=== PATIENT | female | born 1995 | race Caucasian/White ===

== ENCOUNTER 2024-04-15 12:26 | Emergency (ER) | payer OTHER ==
[2024-04-15 12:36] VITALS: RESP 18
--- NOTE | 2024-04-15 13:16 | ED ---
Abdominal Pain HPI - General Source: patient, RN notes reviewed, old records reviewed Mode of arrival: ambulatory Limitations: no limitations <Sadi Bhatt - Last Filed: 04/15/24 13:15> - General Source: RN notes reviewed <Yen Jennings - Last Filed: 04/15/24 16:18> - General Stated Complaint: MRI referral Time Seen by Provider: 04/15/24 12:40 - History of Present Illness Initial Comments: QN a female to the ER for evaluation of abdominal pain history of diabetes concern for gastroparesis significant abdominal pain with decreased bowel movements positive nausea no vomiting no fevers no history of surgical treatment for abdominal pain (Sadi Bhatt) Patient is a 28-year-old female with past medical history of diabetes diagnosed at 10 yo who presents to the with complaint of abdominal pain, bloating and intermittent diarrhea and constipation over the past few days. Patient was referred by primary care provider for CT imaging and concern for gastroparesis. Denies hematemesis, hematuria, dark or tarry stools or hematochezia. Patient has been experiencing intermittent emesis and diarrhea and constipation. Abdominal surgical history of . Denies fevers, chills, body aches, headaches. (Yen Jennings) - Related Data Home Medications Medication Instructions Recorded Confirmed Albuterol Sulfate [Ventolin HFA] 1 puff INHALATION RT-Q4H PRN 04/15/24 04/15/24 Budesonide/Formoterol Fumarate 2 puff INHALATION RT-BID 04/15/24 04/15/24 [Symbicort 80-4.5 Mcg Inhaler] Gabapentin [Neurontin] 300 mg PO TID 04/15/24 04/15/24 Insulin Glargine,Hum.rec.anlog 35 - 45 units SQ HS 04/15/24 04/15/24 [Lantus Solostar Pen] Insulin Lispro [humaLOG Kwikpen] 6 - 8 units SQ TID-W/MEALS 04/15/24 04/15/24 Previous Rx's Medication Instructions Recorded Ondansetron Odt [Zofran Odt] 4 mg PO Q8HR PRN #10 tab 04/15/24 Allergies Allergy/AdvReac Type Severity Reaction Status Date / Time morphine Allergy Rash/Hives/ Verified 04/15/24 15:44 Nausea Review of Systems ROS Other: All systems not noted in ROS Statement are negative. <Sadi Bhatt - Last Filed: 04/15/24 13:15> ROS Other: All systems not noted in ROS Statement are negative. <Yen Jennings - Last Filed: 04/15/24 16:18> ROS Statement: Those systems with pertinent positive or pertinent negative responses have been documented in the HPI. Past Medical History Past Medical History: Asthma, Diabetes Mellitus History of Any Multi-Drug Resistant Organisms: None Reported Past Surgical History: Section Past Psychological History: Anxiety, Depression Smoking Status: Vaper Past Alcohol Use History: None Reported Past Drug Use History: Marijuana <Sadi Bhatt - Last Filed: 04/15/24 13:15> General Exam Limitations: no limitations General appearance: alert, in no apparent distress Head exam: Present: atraumatic, normocephalic, normal inspection Eye exam: Present: normal appearance, PERRL, EOMI. Absent: scleral icterus, conjunctival injection, periorbital swelling ENT exam: Present: normal exam, mucous membranes moist Neck exam: Present: normal inspection. Absent: tenderness, meningismus, lymphadenopathy Respiratory exam: Present: normal lung sounds bilaterally. Absent: respiratory distress, wheezes, rales, rhonchi, stridor Cardiovascular Exam: Present: regular rate, normal rhythm, normal heart sounds. Absent: systolic murmur, diastolic murmur, rubs, gallop, clicks GI/Abdominal exam: Present: soft, normal bowel sounds. Absent: distended, tenderness, guarding, rebound, rigid Extremities exam: Present: normal inspection, full ROM, normal capillary refill. Absent: tenderness, pedal edema, joint swelling, calf tenderness Back exam: Present: normal inspection Neurological exam: Present: alert, oriented X3, CN II-XII intact Psychiatric exam: Present: normal affect, normal mood Skin exam: Present: warm, dry, intact, normal color. Absent: rash <Sadi Bhatt - Last Filed: 04/15/24 13:15> General appearance: alert, in no apparent distress Head exam: Present: atraumatic, normocephalic, normal inspection Eye exam: Present: normal appearance, PERRL, EOMI. Absent: scleral icterus, conjunctival injection, periorbital swelling ENT exam: Present: normal exam, mucous membranes moist Neck exam: Present: normal inspection. Absent: tenderness, meningismus, lymphadenopathy Respiratory exam: Present: normal lung sounds bilaterally. Absent: respiratory distress, wheezes, rales, rhonchi, stridor Cardiovascular Exam: Present: regular rate, normal rhythm, normal heart sounds. Absent: systolic murmur, diastolic murmur, rubs, gallop, clicks GI/Abdominal exam: Present: soft, tenderness (diffuse), normal bowel sounds. Absent: distended, guarding, rebound, rigid Extremities exam: Present: normal inspection, full ROM, normal capillary refill. Absent: tenderness, pedal edema, joint swelling, calf tenderness Back exam: Present: normal inspection Neurological exam: Present: alert, oriented X3, CN II-XII intact Psychiatric exam: Present: normal affect, normal mood Skin exam: Present: warm, dry, intact, normal color. Absent: rash <Yen Jennings - Last Filed: 04/15/24 16:18> Course <Sadi Bhatt - Last Filed: 04/15/24 13:15> Vital Signs 04/15/24 04/15/24 12:33 16:06 Temperature 98.2 F 98.3 F Pulse Rate 85 69 Respiratory 18 18 Rate Blood Pressure 130/84 130/68 O2 Sat by Pulse 98 99 Oximetry - Reevaluation(s) Reevaluation #1: 04/15/24 13:16 QN completed by myself Dr. Bhatt (Sadi Bhatt) Medical Decision Making - Lab Data Result diagrams: 04/15/24 13:02 04/15/24 13:02 <Yen Jennings - Last Filed: 04/15/24 16:18> - Medical Decision Making Was pt. sent in by a medical professional or institution (, PA, CALENDER INSPECTOR, urgent care, hospital, or penitentiary...) When possible be specific @ -patient was advised by per PCP to report for further evaluation of abdominal pain. Did you speak to anyone other than the patient for history (EMS, parent, family, police, friend...)? What history was obtained from this source @ -No Did you review nursing and triage notes (agree or disagree)? Why? @ -I reviewed and agree with nursing and triage notes Were old charts reviewed (outside hosp., previous admission, EMS record, old EKG, old radiological studies, urgent care reports/EKG's, penitentiary records)? Report findings @ -No old charts were reviewed Differential Diagnosis (chest pain, altered mental status, abdominal pain women, abdominal pain men, vaginal bleeding, weakness, fever, dyspnea, syncope, headac he, dizziness, GI bleed, back pain, seizure, CVA, palpatations, mental health, musculoskeletal)? @ -Differential Abdominal Pain Women: Appendicitis, Cholecystitis, diverticulosis, ischemic bowel, pancreatitis, hepatitis, UTI, gastroenteritis, AAA, incarcerated hernia, bowel obstruction, constipation, inflammatory bowel, hepatitis, peptic ulcer disease, splenic infarction, perforated viscus, vulvitis, ovarian torsion, PID, kidney stone, placenta abruption, this is not meant to be an all-inclusive list EKG interpreted by me (3pts min.). @ -None X-rays interpreted by me (1pt min.). @ -None done CT interpreted by me (1pt min.). @ - CT of the abdomen pelvis with contrast revealed proximal small bowel loops demonstrate a thickened wall which may reflect nonspecific enteritis U/S interpreted by me (1pt. min.). @ -None done What testing was considered but not performed or refused? (CT, X-rays, U/S, labs)? Why? @ -None What meds were considered but not given or refused? Why? @ -None Did you discuss the management of the patient with other professionals (professionals i.e. , PA, CALENDER INSPECTOR, lab, RT, psych nurse, director of social work, workers compensation paralegal, teacher, records officer, case maker)? Give summary @ -No Was smoking cessation discussed for >3mins.? @ -No Was critical care preformed (if so, how long)? @ -No Were there social determinants of health that impacted care today? How? (Ho melessness, low income, unemployed, alcoholism, drug addiction, transportation, low edu. Level, literacy, decrease access to med. care, longterm, rehab)? @ -No Was there de-escalation of care discussed even if they declined (Discuss DNR or withdrawal of care, Hospice)? DNR status @ -No What co-morbidities impacted this encounter? (DM, HTN, Smoking, COPD, CAD, Cancer, CVA, ARF, Chemo, Hep., AIDS, mental health diagnosis, sleep apnea, morbid obesity)? @ -None Was patient admitted / discharged? Hospital course, mention meds given and route, prescriptions, significant lab abnormalities, going to OR and other pertinent info. @ -28-year-old female with generalized abdominal pain. Patient was originally evaluated as a quick note where labs were ordered in addition to CT of the abdomen pelvis with contrast for further evaluation. She is symptomatically treated with fluids, Protonix, Zofran, Dilaudid and Benadryl. She is also given a dose of Reglan. Examination of the patient, she has diffuse abdominal tenderness without signs of rebound tenderness or rigidity. Vitals are stable upon arrival. CBC, CMP unremarkable. Lipase elevated at 673, glucose 157. CT consistent with nonspecific enteritis. On reevaluation, patient states that she is feeling markedly better control nausea abdominal pain left-sided. She will be provided with a prescription for Zofran to take at home as needed for nausea. The patient follows up with her primary care provider next week for further evaluation. All questions answered at bedside and strict return parameters discussed with the patient she is verbalized understanding. Case discussed with Dr. Bhatt Undiagnosed new problem with uncertain prognosis? @ -No Drug Therapy requiring intensive monitoring for toxicity (Heparin, Nitro, Insulin, Cardizem)? @ -No Were any procedures done? @ -No Diagnosis/symptom? @ -abdominal pain, nausea and vomiting, elevated lipase Acute, or Chronic, or Acute on Chronic? @ -acute Uncomplicated (without systemic symptoms) or Complicated (systemic symptoms)? @ -uncomplicated Side effects of treatment? @ -No Exacerbation, Progression, or Severe Exacerbation? @ -No Poses a threat to life or bodily function? How? (Chest pain, USA, IA, pneumonia, PE, COPD, DKA, ARF, appy, cholecystitis, CVA, Diverticulitis, Homicidal, Suicidal, threat to staff... and all critical care pts) @ -No (Yen Jennings) - Lab Data Lab Results 04/15/24 04/15/24 04/15/24 Range/Units 13:02 13:02 13:02 WBC 9.4 (3.8-10.6) k/uL RBC 4.30 (3.80-5.40) m/uL Hgb 13.5 (11.4-16.0) gm/dL Hct 41.0 (34.0-46.0) % MCV 95.4 (80.0-100.0) fL MCH 31.3 (25.0-35.0) pg MCHC 32.8 (31.0-37.0) g/dL RDW 12.1 (11.5-15.5) % Plt Count 297 (150-450) k/uL MPV 8.0 Neutrophils % 54 % Lymphocytes % 38 % Monocytes % 5 % Eosinophils % 1 % Basophils % 0 % Neutrophils # 5.1 (1.3-7.7) k/uL Lymphocytes # 3.6 (1.0-4.8) k/uL Monocytes # 0.5 (0-1.0) k/uL Eosinophils # 0.1 (0-0.7) k/uL Basophils # 0.0 (0-0.2) k/uL Sodium 138 (137-145) mmol/L Potassium 4.3 (3.5-5.1) mmol/L Chloride 107 (98-107) mmol/L Carbon Dioxide 26 (22-30) mmol/L Anion Gap 5 mmol/L BUN 17 (7-17) mg/dL Creatinine 0.78 (0.52-1.04) mg/dL Est GFR (CKD-EPI)AfAm >90 (>60 ml/min/1.73 sqM) Est GFR (CKD-EPI)NonAf >90 (>60 ml/min/1.73 sqM) Glucose 157 H (74-99) mg/dL Plasma Lactic Acid [place] (0.7-2.0) mmol/L Calcium 9.3 (8.4-10.2) mg/dL Total Bilirubin 0.4 (0.2-1.3) mg/dL AST 22 (14-36) U/L ALT 20 (4-34) U/L Alkaline Phosphatase 62 (38-126) U/L Total Protein 6.7 (6.3-8.2) g/dL Albumin 4.0 (3.5-5.0) g/dL Amylase 105 (30-110) U/L Lipase 673 H (23-300) U/L Urine Color Colorless Urine Appearance Clear (Clear) Urine pH 6.5 (5.0-8.0) Ur Specific [place] 1.020 (1.001-1.035) Urine Protein Trace H (Negative) Urine Glucose (UA) Negative (Negative) Urine Ketones Negative (Negative) Urine Blood Negative (Negative) Urine Nitrite Negative (Negative) Urine Bilirubin Negative (Negative) Urine Urobilinogen <2.0 (<2.0) mg/dL Ur Leukocyte Esterase Negative (Negative) Urine HCG, Qual (Not Detectd) 04/15/24 04/15/24 Range/Units 13:02 13:02 WBC (3.8-10.6) k/uL RBC (3.80-5.40) m/uL Hgb (11.4-16.0) gm/dL Hct (34.0-46.0) % MCV (80.0-100.0) fL MCH (25.0-35.0) pg MCHC (31.0-37.0) g/dL RDW (11.5-15.5) % Plt Count (150-450) k/uL MPV Neutrophils % % Lymphocytes % % Monocytes % % Eosinophils % % Basophils % % Neutrophils # (1.3-7.7) k/uL Lymphocytes # (1.0-4.8) k/uL Monocytes # (0-1.0) k/uL Eosinophils # (0-0.7) k/uL Basophils # (0-0.2) k/uL Sodium (137-145) mmol/L Potassium (3.5-5.1) mmol/L Chloride (98-107) mmol/L Carbon Dioxide (22-30) mmol/L Anion Gap mmol/L BUN (7-17) mg/dL Creatinine (0.52-1.04) mg/dL Est GFR (CKD-EPI)AfAm (>60 ml/min/1.73 sqM) Est GFR (CKD-EPI)NonAf (>60 ml/min/1.73 sqM) Glucose (74-99) mg/dL Plasma Lactic Acid [place] 0.8 (0.7-2.0) mmol/L Calcium (8.4-10.2) mg/dL Total Bilirubin (0.2-1.3) mg/dL AST (14-36) U/L ALT (4-34) U/L Alkaline Phosphatase (38-126) U/L Total Protein (6.3-8.2) g/dL Albumin (3.5-5.0) g/dL Amylase (30-110) U/L Lipase (23-300) U/L Urine Color Urine Appearance (Clear) Urine pH (5.0-8.0) Ur Specific [place] (1.001-1.035) Urine Protein (Negative) Urine Glucose (UA) (Negative) Urine Ketones (Negative) Urine Blood (Negative) Urine Nitrite (Negative) Urine Bilirubin (Negative) Urine Urobilinogen (<2.0) mg/dL Ur Leukocyte Esterase (Negative) Urine HCG, Qual Not Detected (Not Detectd) Disposition <Sadi Bhatt - Last Filed: 04/15/24 13:15> Is patient prescribed a controlled substance at d/c from ED?: No Time of Disposition: 15:20 <Yen Jennings - Last Filed: 04/15/24 16:18> Clinical Impression: Enteritis, Nausea and vomiting Disposition: HOME SELF-CARE Condition: Good Instructions (If sedation given, give patient instructions): Enteritis (ED) Additional Instructions: Return to the emergency department if your symptoms worsen not proved. Take Zofran as needed for nausea. Recommend that you follow BRAT diet over the next few days. Prescriptions: Ondansetron Odt [Zofran Odt] 4 mg PO Q8HR PRN #10 tab PRN Reason: Nausea Referrals: Lizzette Rodas MD [Primary Care Provider] - 1-2 days
[2024-04-15 13:45] LABS: Basophils % (A) 0 %; Eosinophils # (A) 0.1 k/uL (0-0.7); Eosinophils % (A) 1 %; HGB 13.5 gm/dL (11.4-16.0); Lymphocytes # (A) 3.6 k/uL (1.0-4.8); Lymphocytes % (A) 38 %; MCH 31.3 pg (25.0-35.0); MCHC 32.8 g/dL (31.0-37.0); MCV 95.4 fL (80.0-100.0); Monocytes # (A) 0.5 k/uL (0-1.0); Monocytes % (A) 5 %; Neutrophils # (A) 5.1 k/uL (1.3-7.7); Neutrophils % (A) 54 %; Platelet Count 297 k/uL (150-450); RDW 12.1 % (11.5-15.5); WBC 9.4 k/uL (3.8-10.6)
[2024-04-15 14:02] LABS: ALT 20 U/L (4-34); AST 22 U/L (14-36); African American GFR (CKD) >90 (>60 ml/min/1.73 sqM); Alkaline Phosphatase 62 U/L (38-126); Amylase 105 U/L (30-110); Anion Gap 5 mmol/L; Blood Urea Nitrogen 17 mg/dL (7-17); Calcium 9.3 mg/dL (8.4-10.2); Carbon Dioxide 26 mmol/L (22-30); Chloride 107 mmol/L (98-107); Glucose 157 mg/dL (74-99); Lipase 673 U/L (23-300); Non-African American GFR(CKD) >90 (>60 ml/min/1.73 sqM); Potassium 4.3 mmol/L (3.5-5.1); Sodium 138 mmol/L (137-145); Total Bilirubin 0.4 mg/dL (0.2-1.3); Total Protein 6.7 g/dL (6.3-8.2)
[2024-04-15] MEDS: SODIUM CHLORIDE 0.9% 1,000 ML IV STA (14:05)
[2024-04-15] MEDS: ONDANSETRON 4 MG/2 ML VIAL IVP STA (14:06)
[2024-04-15] MEDS: METOCLOPRAMIDE 5 MG/ML 2 ML VIAL IVP STA (14:07)
[2024-04-15] MEDS: diphenhydrAMINE 50 MG/ML 1 ML VIAL IVP STA (14:08)
[2024-04-15] MEDS: HYDROmorphone 1 MG/ML 1 ML SYRINGE IVP STA (14:09)
[2024-04-15] MEDS: PANTOPRAZOLE 40 MG/10 ML VIAL IVP STA (14:11)
--- NOTE | 2024-04-15 15:07 | CT ---
EXAMINATION TYPE: CT abdomen pelvis w con DATE OF EXAM: 04/15/2024 COMPARISON: None HISTORY: abdominal pain and constipation with diarrhea. CT DLP: 916 mGycm CONTRAST: CT scan of the abdomen and pelvis is performed without Oral Contrast and with IV Contrast, patient in jected with 100ml mL of Isovue 300. FINDINGS: LUNG BASES-: No visible nodule. No infiltrate. LIVER/GB: No calcified gallstones. Borderline hepatomegaly with underlying hepatic steatosis. The No space occupying hepatic lesion. Biliary tree is of normal caliber. PANCREAS: No inflammation. No distinct mass. SPLEEN: No splenic enlargement. No lesion seen. ADRENALS: No nodule. No thickening. KIDNEYS/BLADDER: No hydronephrosis. No nephrolithiasis. No distinct renal mass. Urinary bladder g rossly unremarkable. BOWEL: Normal appendix. Proximal small bowel loops demonstrate a thickened wall which could reflect n onspecific enteritis. Correlate clinically. Mild fecal stasis noted. GENITAL ORGANS: No gross abnormality. LYMPH NODES: No greater than 1cm abdominal or pelvic lymph nodes are appreciated. AORTA: No significant abnormality. OSSEOUS STRUCTURES: No significant abnormality is seen. OTHER: No significant additional abnormality is seen. IMPRESSION: 1. Proximal small bowel loops demonstrate a thickened wall which could reflect nonspecific enteritis. Correlate clinically. 2. Hepatic steatosis.
[2024-04-15 15:37] LABS: Appearance,Urine Clear (Clear); Bilirubin,Urine Negative (Negative); Blood,Urine Negative (Negative); Color,Urine Colorless; Glucose,Urine (UA) Negative (Negative); Ketones,Urine Negative (Negative); Leukocyte Esterase,Urine Negative (Negative); Nitrite,Urine Negative (Negative); PH, Urine 6.5 (5.0-8.0); Protein,Urine Trace (Negative); Urobilinogen,Urine <2.0 mg/dL (<2.0)
[2024-04-15 16:07] VITALS: BP 130/68; PULSE 69; TEMP 98.3
== END 2024-04-15 16:07 | disposition home or self-care (01) ==
LOC: EC 12:26
DX: K52.9 Noninfective gastroenteritis and colitis, unspecified (principal); K76.0 Fatty (change of) liver, not elsewhere classified; F12.90 Cannabis use, unspecified, uncomplicated; F17.290 Nicotine dependence, other tobacco product, uncomplicated; Z88.5 Allergy status to narcotic agent
CPT/HCPCS: 36415; 80053; 82150; 83605; 83690; 85025; 81003; 81025; 74177; 99284; 96374; 96375 ×4; 96361 ×2; J1200; J2765; J2405; J1170; Q9967; J2470; 99285